=== PATIENT | male | born 1965 | race Caucasian/White ===

== ENCOUNTER → 2017-07-16 | Outpatient (CLI) | payer BC | LOC: BMCIMAGING 15:26 | PROVIDERS: ATTEND Internal Medicine | DX: R05 Cough (principal) ==

== ENCOUNTER 2017-09-18 23:52 | Emergency (ER) | payer BC ==
[2017-09-19 00:16] VITALS: RESP 18
[2017-09-19] MEDS ORDERED: AMOXICILLIN/CLAVULANATE POT 875/125 MG TAB PO ONE (01:22)
--- NOTE | 2017-09-19 01:22 | EDPHY ---
H & P Stated Complaint: R tongue pain and throat swelling Time Seen by Provider: 09/19/17 00:03 HPI/ROS: HPI The patient presents with right-sided neck pain, sore throat, tongue pain. Pain began in his right tongue yesterday I have and today has spread to his neck. He feels a swollen area of his neck. He has not had a fever. He has a mild sore throat. He has not had any swelling of his tongue. He has not had any difficulty swallowing. He feels well otherwise. REVIEW OF SYSTEMS Constitutional: No fever, no chills. Eyes: No discharge. ENT: Positive for sore throat. Cardiovascular: No chest pain, no palpitations. Respiratory: No cough, no shortness of breath. Gastrointestinal: No abdominal pain, no vomiting. Genitourinary: No hematuria. Musculoskeletal: No back pain. Skin: No rashes. Neurological: No headache. PMHx: Healthy Soc Hx: Works in the ICU at the [employer] General Appearance: Alert, no distress Eyes: Pupils equal and round no pallor or injection ENT, Mouth: Mucous membranes moist, posterior pharynx appears normal with no erythema or exudate, tongue appears normal, normal appearing salivary duct, right-sided cervical anterior lymphadenopathy is present Respiratory: There are no retractions, lungs are clear to auscultation Cardiovascular: Regular rate and rhythm Gastrointestinal: Abdomen is soft and non-tender, no masses, bowel sounds normal Neurological: A&O, moves all extremities Skin: Warm and dry, no rashes Musculoskeletal: Neck is supple non tender Extremities: symmetrical, full range of motion Psychiatric: Patient is oriented X 3, there is no agitation Source: Patient Exam Limitations: No limitations - Personal History Current Tetanus/Diphtheria Vaccine: Yes - Medical/Surgical History Hx Asthma: No Hx Chronic Respiratory Disease: No Hx Diabetes: No Hx Cardiac Disease: No Hx Renal Disease: No Hx Cirrhosis: No Hx Alcoholism: No Hx HIV/AIDS: No Hx Splenectomy or Spleen Trauma: No Other PMH: denies - Social History Smoking Status: Never smoked Constitutional: Initial Vital Signs Temperature (C) 36.5 C 09/18/17 23:55 Heart Rate 80 09/18/17 23:55 Respiratory Rate 18 09/18/17 23:55 Blood Pressure 127/83 H 09/18/17 23:55 O2 Sat (%) 96 09/18/17 23:55 O2 Delivery Mode Room Air Allergies/Adverse Reactions: No Known Allergies Allergy (Unverified 04/19/13 09:49) Home Medications: Medication Instructions Recorded Amoxicillin/Clavulanate Pot 875 mg PO BID #14 tab 09/19/17 [Augmentin 875 MG TAB (*)] Medical Decision Making Procedures: Bedside right neck Ultrasound- performed and interpreted by me. Indication: Right neck mass Findings: Enlarged lymph node with centralized flow, no free fluid, no localized fluid collection Impression: Lymphadenopathy Differential Diagnosis: This is a healthy 52-year-old male who presents with right-sided neck mass associated with sore throat and tongue pain. On exam, he is well-appearing, vital signs are normal. Neck mass ultrasounded and appears to be lymphadenopathy. I have considered sialadenitis but I feel this is unlikely. Rapid strep was performed and was negative. I plan to discharge him with a course of Augmentin for lymphadenitis. I have explained that if this does not improve, in the next 1-2 days, he should follow up with his primary care doctor for possible ultrasound or biopsy. He is in agreement with this plan. - Data Points Laboratory Results: 09/19/17 09/19/17 Unknown 00:45 Group A Strep Screen NEGATIVE (NEGATIVE) Group A Strep DNA Pending Medications Given: Discontinued Medications Amoxicillin/Clavulanate Potassium (Augmentin 875mg) 875 mg PO EDNOW ONE PRN Reason: Protocol Stop: 09/19/17 01:23 Last Admin: 09/19/17 01:25 Dose: 875 mg Departure - Departure Disposition: Home, Routine, Self-Care Clinical Impression: Cervical lymphadenopathy, Painful tongue Condition: Good Instructions: Adenitis (ED) Additional Instructions: Please follow-up with your doctor in 1-2 days. Your rapid strep test was negative. Your lymph node should improve with antibiotics, and if it does not he will need to have follow-up. Please return to the emergency department if your worse in any way. Referrals: Kirt Lozoya MD [Primary Care Provider] - As per Instructions Prescriptions: Amoxicillin/Clavulanate Pot [Augmentin 875 MG TAB (*)] 875 mg PO BID #14 tab
[2017-09-19 01:29] VITALS: BP 125/73; PULSE 66; TEMP 98.1; O2SAT 94
== END 2017-09-19 01:31 | disposition home or self-care (01) ==
DX: R59.1 Generalized enlarged lymph nodes (principal); K14.6 Glossodynia

== ENCOUNTER 2017-09-20 00:33 | Emergency (ER) | payer BC ==
[2017-09-20 00:40] VITALS: RESP 18; TEMP 97.9
[2017-09-20] MEDS ORDERED: NS 1,000 ML IV ONE (01:37)
--- NOTE | 2017-09-20 01:39 | EDPHY ---
H & P Stated Complaint: increase right tongue pain Time Seen by Provider: 09/20/17 01:28 HPI/ROS: CHIEF COMPLAINT: Right neck mass HISTORY OF PRESENT ILLNESS: Patient is a 52-year-old man who comes to the emergency department complaining of a painful right neck mass. He states that it 1st developed on Wednesday with pain in his tongue and jaw. Over last 2 days he has developed swelling and lymph node his right mandible. He was seen here 2 nights ago and had an ultrasound that revealed an enlarged lymph node with good blood flow. He was started on Augmentin. He has taken 2 doses thus far and states that he has not gotten any better. The patient denies dental pain and states that he had a normal dental exam 2 weeks ago with x-rays. He denies headache or fever. He denies nausea vomiting or chest pain. No intraoral swelling. His cheek and tongue are very tender. REVIEW OF SYSTEMS: Constitutional: denies: chills, fever, recent illness, recent injury EENTM: See HPI Respiratory: denies: cough, shortness of breath Cardiac: denies: chest pain, irregular heart rate, lightheadedness, palpitations Gastrointestinal/Abdominal: denies: abdominal pain, diarrhea, nausea, vomiting, blood streaked stools Genitourinary: denies: dysuria, frequency, hematuria, pain Musculoskeletal: denies: joint pain, muscle pain Skin: denies: lesions, rash, jaundice, bruising Neurological: denies: headache, numbness, paresthesia, tingling, dizziness, weakness Hematologic/Lymphatic: denies: blood clots, easy bleeding, easy bruising Immunologic/allergic: denies: HIV/AIDS, transplant EXAM: GENERAL: Well-appearing, well-nourished and in no acute distress. HEAD: Atraumatic, normocephalic. EYES: Pupils equal round and reactive to light, extraocular movements intact, sclera anicteric, conjunctiva are normal. ENT: TMs normal, nares patent, oropharynx clear without exudates. Moist mucous membranes. No erythema or exudate NECK: Normal range of motion, large right anterior lymph node, firm and tender , no warmth or erythema LUNGS: Breath sounds clear to auscultation bilaterally and equal. No wheezes rales or rhonchi. HEART: Regular rate and rhythm without murmurs, rubs or gallops. ABDOMEN: Soft, nontender, normoactive bowel sounds. No guarding, no rebound. No masses appreciated. BACK: No CVA tenderness, no spinal tenderness, step-offs or deformities EXTREMITIES: Normal range of motion, no pitting or edema. No clubbing or cyanosis. NEUROLOGICAL: Cranial nerves II through XII grossly intact. Normal speech, normal gait. 5/5 strength, normal movement in all extremities, normal sensation PSYCH: Normal mood, normal affect. SKIN: Warm, dry, normal turgor, no visible rashes or lesions. Source: Patient Exam Limitations: No limitations - Personal History Current Tetanus Diphtheria and Acellular Pertussis (TDAP): Yes - Medical/Surgical History Hx Asthma: No Hx Chronic Respiratory Disease: No Hx Diabetes: No Hx Cardiac Disease: No Hx Renal Disease: No Hx Cirrhosis: No Hx Alcoholism: No Hx HIV/AIDS: No Hx Splenectomy or Spleen Trauma: No Other PMH: denies - Family History Significant Family History: No pertinent family hx - Social History Smoking Status: Never smoked Alcohol Use: None Constitutional: Initial Vital Signs Temperature (C) 36.6 C 09/20/17 00:36 Heart Rate 89 09/20/17 00:36 Respiratory Rate 18 09/20/17 00:36 Blood Pressure 150/100 H 09/20/17 00:36 O2 Sat (%) 97 09/20/17 00:36 O2 Delivery Mode Room Air Allergies/Adverse Reactions: No Known Allergies Allergy (Unverified 09/20/17 00:36) Home Medications: Medication Instructions Recorded Amoxicillin/Clavulanate Pot 875 mg PO BID #14 tab 09/19/17 [Augmentin 875 MG TAB (*)] Medical Decision Making - Diagnostics Imaging: Discussed imaging studies w/ spinner frame Radiologist ED Course/Re-evaluation: 2:40 a.m. We discussed the CT results. The patient's pain is much improved. I discussed the case with Ann-Marie Deleon who is on-call for Dr. Pizarro from ENT. She suggests the patient come to their office 1st thing in the morning for dilation and stone removal. I will give him another dose of Dilaudid as well as Toradol here tonight and take-home pack for Percocet the until he can see ENT 1st thing in the morning. Differential Diagnosis: Partial list of the Differential diagnosis considered include but were not limited to; salivary duct stone, lymph no necrosis, and although unlikely based on the history and physical exam, I also considered tumor, aneurysm, abscess, dental infection. I discussed these differential diagnoses and the plan with the patient as well as the usual and expected course. The patient understands that the diagnosis is provisional and that in medicine we are not always correct and that further workup is often warranted. Usual and customary warnings were given. All of the patient's questions were answered. The patient was instructed to return to the emergency department should the symptoms at all worsen or return, otherwise to followup with the physician as we discussed. - Data Points Laboratory Results: Laboratory Results 09/20/17 02:00 09/20/17 02:00 09/20/17 09/20/17 09/20/17 02:00 02:00 01:51 WBC 9.24 10^3/uL 10^3/uL (3.80-9.50) RBC 5.47 10^6/uL 10^6/uL (4.40-6.38) Hgb 17.6 g/dL H g/dL (13.7-17.5) POC Hgb 17.3 gm/dL gm/dL (13.7-17.5) Hct 49.2 % % (40.0-51.0) POC Hct 51 % % (40-51) MCV 89.9 fL fL (81.5-99.8) MCH 32.2 pg pg (27.9-34.1) MCHC 35.8 g/dL g/dL (32.4-36.7) RDW 12.2 % % (11.5-15.2) Plt Count 201 10^3/uL 10^3/uL (150-400) MPV 10.2 fL fL (8.7-11.7) Neut % (Auto) 71.0 % % (39.3-74.2) Lymph % (Auto) 19.7 % % (15.0-45.0) Dickinson % (Auto) 8.0 % % (4.5-13.0) Eos % (Auto) 0.8 % % (0.6-7.6) Baso % (Auto) 0.3 % % (0.3-1.7) Nucleat RBC Rel Count 0.0 % % (0.0-0.2) Absolute Neuts (auto) 6.56 10^3/uL H 10^3/uL (1.70-6.50) Absolute Lymphs (auto) 1.82 10^3/uL 10^3/uL (1.00-3.00) Absolute Monos (auto) 0.74 10^3/uL 10^3/uL (0.30-0.80) Absolute Eos (auto) 0.07 10^3/uL 10^3/uL (0.03-0.40) Absolute Basos (auto) 0.03 10^3/uL 10^3/uL (0.02-0.10) Absolute Nucleated RBC 0.00 10^3/uL 10^3/uL (0-0.01) Immature Gran % 0.2 % % (0.0-1.1) Immature Gran # 0.02 10^3/uL 10^3/uL (0.00-0.10) POC Sodium 140 mEq/L mEq/L (135-145) Sodium 143 mEq/L mEq/L (135-145) POC Potassium 4.3 mEq/L mEq/L (3.3-5.0) Potassium 4.8 mEq/L mEq/L (3.5-5.2) POC Chloride 100 mEq/L mEq/L (97-110) Chloride 102 mEq/L mEq/L (97-110) Carbon Dioxide 27 mEq/l mEq/l (22-31) Anion Gap 14 mEq/L mEq/L (8-16) POC BUN 23 mg/dL mg/dL (7-23) BUN 20 mg/dL mg/dL (7-23) Creatinine 0.9 mg/dL mg/dL (0.7-1.3) POC Creatinine 0.9 mg/dL mg/dL (0.7-1.3) Estimated GFR > 60 Glucose 88 mg/dL mg/dL (70-100) POC Glucose 89 mg/dL mg/dL (70-100) Calcium 9.8 mg/dL mg/dL (8.5-10.4) Medications Given: Discontinued Medications Hydromorphone HCl (Dilaudid) 1 mg IVP EDNOW ONE Stop: 09/20/17 01:48 Last Admin: 09/20/17 01:52 Dose: 1 mg Hydromorphone HCl (Dilaudid) 1 mg IVP EDNOW ONE Stop: 09/20/17 02:41 Last Admin: 09/20/17 03:01 Dose: 1 mg Sodium Chloride (Ns) 1,000 mls @ 0 mls/hr IV ONCE ONE; Wide Open PRN Reason: Protocol Stop: 09/20/17 01:38 Last Admin: 09/20/17 01:51 Dose: 1,000 mls Ketorolac Tromethamine (Toradol) 30 mg IVP EDNOW ONE Stop: 09/20/17 02:41 Last Admin: 09/20/17 02:56 Dose: 30 mg Oxycodone/Acetaminophen (Percocet 5/325mg Prepack#4) 1 btl TAKEHOME EDNOW ONE Stop: 09/20/17 02:46 Last Admin: 09/20/17 03:32 Dose: 1 btl Point of Care Test Results: 09/20/17 01:51 POC Sodium 140 POC Potassium 4.3 POC Chloride 100 POC BUN 23 POC Creatinine 0.9 POC Glucose 89 Departure - Departure Disposition: Home, Routine, Self-Care Clinical Impression: Salivary duct stone Condition: Fair Instructions: Oxycodone/Acetaminophen (By mouth), Sialoadenitis (ED) Additional Instructions: Follow-up with Dr. Pizarro 1st thing this morning. Make sure there his staff is aware that you were in the ER and that Dr. Duggan talked to the GAYE Deleon who recommended you come in 1st thing in the morning Referrals: Paulie Pizarro MD [Medical Doctor] - 1 day without fail Kirt Lozoya MD [Primary Care Provider] - As per Instructions
[2017-09-20] MEDS ORDERED: HYDROmorphONE/DILAUDID 1 MG/ML INJ IVP ONE ×2 (01:47→02:40)
[2017-09-20] MEDS ORDERED: IOPAMIDOL (ISOVUE-300) 100 ML BTL ONE (01:49)
[2017-09-20 02:11] LABS: PLATELET COUNT 201 10^3/uL (150-400)
[2017-09-20] MEDS ORDERED: KETOROLAC 30 MG/1 ML SDV IVP ONE (02:40)
[2017-09-20] MEDS ORDERED: OXYCODONE/APAP 5/325MG PREPACK#4 BTL TAKEHOME ONE (02:45)
[2017-09-20 03:41] VITALS: BP 129/88; PULSE 79; O2SAT 96
== END 2017-09-20 03:40 | disposition home or self-care (01) ==
DX: K11.5 Sialolithiasis (principal); E86.9 Volume depletion, unspecified
CPT/HCPCS: 82947-QW; 96374; J1170; J1885; Q9967